=== PATIENT | female | born 1960 | race Caucasian/White ===

== ENCOUNTER → 2016-11-22 | Outpatient (REF) | payer BC ==
[2016-11-22 14:21] LABS: WBC, URINE 0-1 /hpf (0-3)
[2016-11-22 14:22] LABS: BACTERIA, URINE SMALL AMOUNT; MICROSCOPIC EXAM PERFORMED
[2016-11-24 00:06] LABS: Candida species Negative (Negative); Gardnerella vaginalis Negative (Negative); Trichamonas vaginalis Negative (Negative)
== END ==
LOC: M SMT 13:04
PROVIDERS: ATTEND Specialist
DX: R39.15 Urgency of urination (principal); N76.0 Acute vaginitis

== ENCOUNTER → 2018-11-03 | Outpatient (REF) | payer BC | LOC: M LAB LCGH 11:43 | DX: Z12.4 Encounter for screening for malignant neoplasm of cervix (principal) ==